=== PATIENT | male | born 1985 | race Caucasian/White ===

== ENCOUNTER → 2022-09-30 | Outpatient (CLI) | payer OTHER | END | disposition home or self-care (01) | LOC: MSR 09:31 | PROVIDERS: ATTEND Chiropractor | DX: T14.8XXA Other injury of unspecified body region, initial encounter (principal); M20.11 Hallux valgus (acquired), right foot; I51.9 Heart disease, unspecified; M13.80 Other specified arthritis, unspecified site; X58.XXXA Exposure to other specified factors, initial encounter; Y93.89 Activity, other specified; Y92.89 Other specified places as the place of occurrence of the external cause; Y99.8 Other external cause status | CPT/HCPCS: 93005; 93306; 73120-TC; 73620-TC ==